=== PATIENT | female | born 1970 | race Caucasian/White ===

== ENCOUNTER 2019-09-13 21:26 | Inpatient (IN) | payer BC, SELFPAY ==
[2019-09-13 21:28] VITALS: BP 88/51; PULSE 89; RESP 12; TEMP 36.7; O2SAT 95; BMI 31.8
--- NOTE | 2019-09-13 21:49 | EKG12_ITS ---
Test Reason : SYNCOPE Blood Pressure : / mmHG Vent. Rate : 091 BPM Atrial Rate : 091 BPM P-R Int : 146 ms QRS Dur : 086 ms QT Int : 352 ms P-R-T Axes : 034 047 047 degrees QTc Int : 432 ms Normal sinus rhythm Normal ECG Confirmed by LYNN BHATT, MARVIN ([id number]), assistant film editor ASHANTI LPOEZ ([id number]) on 09/14/2019 1:41:21 PM Referred By: BB Confirmed By:MARVIN BAILEY MD
--- NOTE | 2019-09-13 21:50 | ED.VIS.GEN ---
History of Present Illness Informant: Patient Onset: Today Context: Gradual Onset - w/ prodromal lightheadedness Timing: Intermittent - x2 Quality: passed out after feeling lightheaded Current Severity: Mild Maximum Severity: Severe Worsened by: standing Associated Symptoms: black stool, black vomit Narrative: Patient was grilling food she felt lightheaded and went in to go to the bathroom and urinate, passed out while she was on the toilet falling off without apparent injury. Subsequently, she had a large amount of black stool for the first time. She also vomited black coffee-ground looking emesis at home and here. While on the way to the car to come here, she got lightheaded and passed out again, going down to her knees and scraping them but able to walk without any difficulty and no other injury. She is on omeprazole for GERD, and states that she has been taking Aleve almost daily for several years because of residual pain from her left shoulder after rotator cuff surgery. <Guilherme Navarrete - Last Filed: 09/14/19 00:32> <Adria Velasquez - Last Filed: 09/14/19 01:13> Chief Complaint: Syncope - Past Medical History (1) GERD (gastroesophageal reflux disease) Status: Chronic <Guilherme Navarrete - Last Filed: 09/14/19 00:32> Past Medical History Surgical History: cholecystectomy, rotator cuff repair - left shoulder., - - neck surgery, tubal ligation, uterine ablation, surgical preparation infected left pubic wound abscess with excision (27 cm2) on 05/11/14. Lives: Spouse/ Significant Other Smoking Status: Former smoker - Family History Paternal Family History: Reports: Cancer, Diabetes, High Cholesterol, Hypertension, - - arthritis. Maternal Family History: Reports: Diabetes, Hypertension, - - arthritis, osteoporosis. <Guilherme Navarrete - Last Filed: 09/14/19 00:32> <Adria Velasquez - Last Filed: 09/14/19 01:13> - Allergies and Home Meds Allergies/Adverse Reactions: Allergies Penicillins [PCN] Allergy (Verified 09/13/19 21:28) Hives Primary Care Physician: Chris Bhatti MD [STAFF PHYSICIAN] - Review of Systems General: Reports: Malaise. Denies: Chills, Fever, Sweats Eyes: Denies: Visual changes - bilaterally, Diplopia ENT: Denies: Bilateral ear pain, Rhinorrhea, Sore throat Cardiovascular: Denies: Chest pain, Palpitations Respiratory: Denies: Dyspnea, Cough, Dyspnea on exertion Gastrointestinal: Reports: Nausea, Vomiting, Melena. Denies: Abdominal pain, Hematochezia Genitourinary: Denies: Dysuria, Hematuria, Frequency Musculoskeletal: Reports: Extremity Pain. Denies: Neck pain, Back pain, Swelling Skin: Reports: Abrasions. Denies: Rash Neurological: Denies: Headache, Weakness, Numbness <Guilherme Navarrete - Last Filed: 09/14/19 00:32> Physical Exam Vital Signs/Narrative: Vital Signs Temp Pulse Resp BP Pulse Ox 09/13/19 21:28 98.1 F 89 12 88/51 L 95 Inital Vital Signs reviewed: Yes General: Well nourished, Well developed, No Acute Distress Head: Normocephalic, Atraumatic Eyes: Perrl, EOMI ENT: Moist mucous membranes, No rhinorrhea, - - Posterior oropharynx clear Neck: Supple, Nontender, No lymphadenopathy Cardiovascular: Regular rate, Regular rhythm, No murmurs Respiratory: No distress, CTA bilaterally, Chest nontender Abdomen: Soft, Nontender, Nondistended, Normal bowel sounds Back: Nontender, Normal Inspection Extremities: Nontender, No edema, - - All knee ligaments stable both sides. Full range of motion both knees. Skin: Normal color, No rash, Trauma - Abrasions both knees without bony tenderness Neurological: Alert, Oriented x3, Cranial nerves II-XII grossly intact, Normal Strength, Normal Sensation, Normal Gait Psychological: Normal affect, Normal Mood <Guilherme Navarrete - Last Filed: 09/14/19 00:32> Vital Signs/Narrative: Vital Signs Temp Pulse Resp BP Pulse Ox 09/14/19 01:06 79 101/69 95 09/14/19 00:18 83/51 L 09/14/19 00:00 101/62 09/13/19 22:33 85 108/84 H 98 09/13/19 22:20 86 16 75/62 L 100 09/13/19 21:28 98.1 F 89 12 88/51 L 95 <Adria Velasquez - Last Filed: 09/14/19 01:13> Diagnostic/Tx/Re-eval 09/13/19 22:22 Vomitus Gastric Occult Blood - Final Laboratory Results 09/13/19 09/13/19 09/13/19 21:45 21:45 21:45 WBC 21.4 H RBC 3.39 L Hgb 10.0 L Hct 31.3 L MCV 92.3 MCH 29.5 MCHC 31.9 L RDW Std Deviation 43.5 RDW Coeff of Dwight 13.0 Plt Count 284 MPV 11.2 Immature Gran % (Auto) 0.800 Neut % (Auto) 64.2 Lymph % (Auto) 24.3 [place] % (Auto) 6.2 Eos % (Auto) 3.8 Baso % (Auto) 0.7 Absolute Neuts (auto) 13.7 H Absolute Lymphs (auto) 5.20 H Nucleated RBC % 0 Differential Comment SCANNED Sodium 139 Potassium 3.7 Chloride 109 H Carbon Dioxide 24.0 Anion Gap 6 BUN 41 H Creatinine 0.75 Estim Creat Clear Calc 75.88 Est GFR (MDRD) Af Amer 107 Est GFR (MDRD) Non-Af 88 BUN/Creatinine Ratio 55.0 H Glucose 163 H Calcium 8.5 Troponin I 0.024 Blood Type A POSITIVE Antibody Screen NEGATIVE - Rhythm Strip Rhythm Strip: Sinus Rhythm Rate: 91 Ectopy: None - EKG Initial EKG Interpretation: Sinus Rhythm, No Acute Injury Pattern - normal EKG - Medical Decision Making Just prior to starting the IV fluids that were ordered since the patient was mildly hypotensive at 88 systolic, the patient was supine and started feeling lightheaded with nursing at the bedside, and briefly lost consciousness. Her heart rate was in the 80s at the time, and while she was very symptomatic her systolic blood pressure was 40. Nurses started fluids and before starting them, repeat pressure was in the 70s while she was waking up, and after IV fluids her pressure came up to the 100s. She felt much better. Labs as above. She clearly is having upper GI bleeding, since emesis specimen was readily available I had nursing gastric called it was positive. She had another bowel movement, it was not grossly bloody and she did not vomit gross blood. I discussed with Dr. jacques, she requested that we perform orthostatics after a liter of IV fluid was finished. Orthostatics were positive, her blood pressure went down to 83 systolic when she stood up from 108, and she was lightheaded but did not pass out. She has that we repeat the CBC which will be about 4 hours after her initial one, so that we can see the hemoglobin and the white blood count in possibly truer forearm to help assess stability. <Guilherme Navarrete - Last Filed: 09/14/19 00:32> - Medical Decision Making Patient was endorsed to me by the outgoing physician. A repeat H&H on the patient shows her to only have decreased her hemoglobin from 10.0-9.5. Blood pressures are improving in the emergency department and currently are 101/69. I discussed patient's case on the telephone with Dr. Jacques who does feel comfortable with keeping the patient at this facility. She recommended the patient be n.p.o., and receive every 6 H&H's and requested a medicine admission. I discussed this with Dr. Mancilla who agreed to accept the patient to the PCU. - Critical Care Time Critical care time (excluding procedures): 30-74 minutes <Adria Velasquez - Last Filed: 09/14/19 01:13> ED Disposition <Guilherme Navarrete - Last Filed: 09/14/19 00:32> <Adria Velasquez - Last Filed: 09/14/19 01:13> - Plan for ED Patient: Disposition: Acute Care Hospital [facility] Diagnosis: Upper GI bleeding, Syncope, Acute blood loss anemia
[2019-09-13 22:07] LABS: Absolute Neutrophil Count 13.7 X10^3/uL (2.0-7.7); Basophil# 0.15 X10^3/uL; Basophil% 0.7 % (0-1); Eosinophil# 0.82 X10^3/uL; Eosinophils% 3.8 % (0-5); Hematocrit 31.3 % (37-47); Lymphocyte % 24.3 % (19-41); Mean Corp Hgb Conc 31.9 g/dL (32-36); Mean Corpuscular Hgb 29.5 pg (27.0-32.0); Mean Corpuscular Volume 92.3 fL (81-99); Mean Platelet Vol. 11.2 fl (6.2-12.0); Monocyte# 1.33 X10^3/uL; Monocyte% 6.2 % (0-10); NRBC Flagged by Analyzer 0 % (0-5); Neutrophil % 64.2 % (47-70); POSITIVE DIFFERENTIAL YES; POSITIVE MORPHOLOGY YES; Platelet Count 284 K/mm3 (150-450); RBC Distribution Width SD 43.5 fl (35.1-43.9); Red Blood Count 3.39 M/mm3 (4.2-5.4); White Blood Count 21.4 K/mm3 (4.4-11.0)
[2019-09-13] MEDS: 0.9% Normal Saline 1,000 ML 999 ML IV (22:10)
[2019-09-13 22:11] LABS: Differential Indicated SCAN CRITERIA MET
[2019-09-13] MEDS: Ondansetron 4 MG/2 ML Vial IV (22:17)
[2019-09-13 22:20] VITALS: BP 75/62; PULSE 86; RESP 16; O2SAT 100
--- NOTE | 2019-09-13 22:20 | ED.RN ---
WHILE IN ROOM PATIENT STATED SHE FELT LIKE SHE WAS GOING TO VOMIT AGAIN. PATIENT BECAME VERY PALE AND DIAPHORETIC. PATIENT PASSED OUT WHILE LAYING BED. WAS UNCONSCIOUS FOR APPROXIMATELY 15-20 SECONDS. HEART RATE REMAINED IN THE 80'S. BP 75/62. DR. HOYT NOTIFIED.
[2019-09-13 22:30] LABS: Anion Gap 6 (5-15); BUN 41 mg/dL (7-18); Calcium,Total 8.5 mg/dL (8.5-10.1); Chloride 109 mmol/L (98-107); Creatinine, Serum 0.75 mg/dL (0.55-1.02); EST Glomerular Filtration Rate 88 mL/min (>60); Est Glom Filt Rate - Afr Amer 107 mL/min (>60); Estimated Creatinine Clearance 75.88 ml/min; Glucose 163 mg/dL (74-106); Potassium 3.7 mmol/L (3.5-5.1); Sodium Level 139 mmol/L (136-145)
[2019-09-13 22:33] VITALS: BP 108/84; PULSE 85; O2SAT 98
[2019-09-13 22:35] LABS: Differential Comment SCANNED
[2019-09-14] VITALS (22 sets, daily range): BP systolic 83–108; BP diastolic 47–69; PULSE 77–113; RESP 14–22; TEMP 36.3–37.6; O2SAT 92–100; BMI 32.5; BMI 32.6
--- NOTE | 2019-09-14 | IMM_PTH ---
PATIENT: MARCY RODRIGUEZ LOC: [facility] U#:[id number] AGE/SX: 49/F ROOM: [facility] RE09/14/[address]: Dr. Anastacio Jeter DO : 1970 BED: 1 DIS: 09/15/2019 SPEC #: [id number] RECD: 09/15/19 11:09 STATUS: MONI REJody #: [id number] JUAN: 09/14/19 00:[address]: Shanell Jacques DEPT: IMMUNOHISTOCHEMISTRY RECD BY: Lyn Pierce ENTERED: 09/15/19 11:10 SP TYPE: IMMUNO OTHR DR: DO Dr. Cristobal Keating MD No Primary Care Phys Tissues: A - Stomach, NOS Procedures: H Pylori (initial) PHYSICIAN & INSTITUTION [place] [id number] SPECIMEN INFORMATION: Tissue Source: A - Prepyloric biopsy Clinical Info: GI bleed Specimen Number: [id number] CPT code: 04889 METHODOLOGY: Deparaffinized sections of prefer/formalin-fixed tissue or PAP/DQ stained slides are incubated with monoclonal/polyclonal antibodies/oligonucleotide probes. Localization is made via biotin free immunoperoxidase method. Appropriate controls are performed and reacted as expected. Results on target cell population are indicated in the following table: RESULTS: ANTIBODY / CLONE RESULT Block A H Pylori (polyclonal) negative These tests were developed and their performance characteristics determined by [facility]. They may not have been cleared or approved by the U.S. Food and Drug Administration. The FDA has determined that such clearance or approval is not necessary. INTERPRETATION: A. Prepyloric biopsy: Negative for Helicobacter pylori organisms. SJ:ivan 09/21/19
[2019-09-14 00:45] LABS: Absolute Lymphocyte Count 2.61 X10^3/uL (0.83-4.51); Absolute Neutrophil Count 14.2 X10^3/uL (2.0-7.7); Basophil# 0.08 X10^3/uL; Basophil% 0.4 % (0-1); Eosinophil# 0.12 X10^3/uL; Eosinophils% 0.7 % (0-5); Hematocrit 29.7 % (37-47); Hemoglobin 9.5 g/dL (12.0-15.0); Lymphocyte # 2.61 X10^3/ul (4.0); Lymphocyte % 14.6 % (19-41); Mean Corpuscular Hgb 29.6 pg (27.0-32.0); Mean Corpuscular Volume 92.5 fL (81-99); Mean Platelet Vol. 10.9 fl (6.2-12.0); Monocyte# 0.76 X10^3/uL; Monocyte% 4.3 % (0-10); NRBC Flagged by Analyzer 0 % (0-5); Neutrophil # 14.15 X10^3/uL (2.7-7.7); Neutrophil % 79.2 % (47-70); Platelet Count 236 K/mm3 (150-450); Red Blood Count 3.21 M/mm3 (4.2-5.4); White Blood Count 17.9 K/mm3 (4.4-11.0)
[2019-09-14] MEDS: 0.9% Normal Saline 1,000 ML 999 ML IV (01:04)
--- NOTE | 2019-09-14 01:30 | HP.PCM_ITS ---
Problem List (1) GERD (gastroesophageal reflux disease) Status: Chronic (2) Upper GI bleeding Status: Acute (3) Syncope Status: Acute (4) Acute blood loss anemia Status: Acute History of Present Illness Date of Admission: 09/14/19 Chief Complaint: upper GIB The patient is a 49 year old female with no significant past medical history presents to the emergency room after throwing up coffee-ground emesis followed by melena stool onset of symptoms began on Friday when she was having some lightheadedness and near syncopal episode. On Friday evening prior to her arrival she was urinating in the toilet and she completely passed out leaving a margy in the wall next to her, she denies injury to her head. She was found by her daughter and try to recover at home but became lightheaded again so the daughter called the ambulance who evaluated her at the home and found her to be stable enough to walk her to her car and she was driven by personal vehicle to the emergency room. Initial hemoglobin was 10 which subsequently fell to 9.5. If she is laying flat in bed she is more comfortable and has had no more syncope as long as she is in that position. She denies chest pain shortness of breath fever chills or cough. Dr. Jacques was consulted and patient will be admitted to the progressive care unit with H&H checks every 6 hours, IV Protonix and surgical consult the morning after being n.p.o.. Past Medical History Past Medical History (Chronic Problems): Chronic Problems GERD (gastroesophageal reflux disease) (Chronic) Allergies Penicillins [PCN] Allergy (Verified 09/13/19 21:28) Hives Home Medications: Ambulatory Orders Medication Instructions Recorded Acetaminophen [Tylenol Tablet] 650 mg PO Q4H PRN PRN #30 tablet 05/12/14 Lactobacillus Acidophilus 1 tablet PO BID 10 Days tablet 05/12/14 [Acidophilus] Silver/Hydrocolloid Dressing 1 each TP DAILY #5 bandage 05/12/14 [Aquacel-Ag W-Hydrofiber Dress] Naproxen Sodium [Aleve] 220 mg PO PRN PRN 09/13/19 Omeprazole 20 mg PO DAILY 09/13/19 Surgical History: cholecystectomy, rotator cuff repair - left shoulder., - - neck surgery, tubal ligation, uterine ablation, surgical preparation infected left pubic wound abscess with excision (27 cm2) on 05/11/14. 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 had tubal ligation. Lives: Spouse/ Significant Other Smoking Status: Never smoker - *Family History Paternal History Items: Cancer, Diabetes, High Cholesterol, Hypertension, - - arthritis. Maternal History Items: Diabetes, Hypertension, - - arthritis, osteoporosis. Review of Systems Constitutional: Denies: Chills, Fever, Weight Change HEENT: Denies: Head Aches, Sinus Congestion, Sinus Drainage Cardiovascular: Denies: Chest Pain, Palpitations Respiratory: Denies: Cough, Shortness of breath at rest, Sputum production Gastrointestinal: Reports: Hematemesis, Nausea, Melena, Vomiting. Denies: Abdominal Pain Genitourinary: Denies: Dysuria Musculoskeletal: Reports: Joint Tenderness. Denies: Joint Pain Skin: Denies: Rash, Wounds Neurological: Denies: Numbness, Tingling, Focal weakness Psychiatric: Denies: Anxiety, Depression, Homicidal Ideations, Suicidal Ideations Hematologic/ Lymphatic: Denies: Easy Bruising, Easy Bleeding VTE Information - Inpt Only VTE Present on Admission: No VTE Mechan Device Prophylaxis: None VTE Pharm Prophylaxis ordered?: No Patient Problems: Active and Suspected Problems Upper GI bleeding (Acute) Syncope (Acute) Acute blood loss anemia (Acute) - Physical Exam Vitals/I&O's: Vital Signs Temp Pulse Resp BP Pulse Ox 98.7 F 91 22 H 101/69 99 09/14/19 01:16 09/14/19 01:16 09/14/19 01:16 09/14/19 01:16 09/14/19 01:16 Oxygen Delivery Method Room Air Weight: 180 lb Body Mass Index (BMI) 31.8 Intake and Output for Last 24 Hours 09/12/19 09/13/19 09/14/19 23:59 23:59 23:59 Intake Total 1035 / 1035 Balance 1035 / 1035 General: Alert, Oriented x3, Cooperative HEENT: Atraumatic, Normocephalic Neck: Supple Lungs: Clear to auscultation, Normal air movement Cardiovascular: Regular rate, Normal S1, Normal S2, No murmurs Abdomen: Bowel Sounds Present, Soft, Non Tender, Obese Extremities: No edema Skin: No rashes Musculoskeletal: No Tenderness to Palpation of Joints or Extremities Neurological: Neuro grossly intact Psych/Mental Status: Normal Affect, Appropriate Microbiology Past 72 Hours 09/13/19 22:22 Vomitus Gastric Occult Blood - Final Laboratory Results 09/13/19 21:45: WBC 21.4 H, RBC 3.39 L, Hgb 10.0 L, Hct 31.3 L, MCV 92.3, MCH 29.5, MCHC 31.9 L, RDW Std Deviation 43.5, RDW Coeff of Dwight 13.0, Plt Count 284, MPV 11.2, Immature Gran % (Auto) 0.800, Neut % (Auto) 64.2, Lymph % (Auto) 24.3, [place] % (Auto) 6.2, Eos % (Auto) 3.8, Baso % (Auto) 0.7, Absolute Neuts (auto) 13.7 H, Absolute Lymphs (auto) 5.20 H, Nucleated RBC % 0, Differential Comment SCANNED 09/13/19 21:45: Sodium 139, Potassium 3.7, Chloride 109 H, Carbon Dioxide 24.0, Anion Gap 6, BUN 41 H, Creatinine 0.75, Estim Creat Clear Calc 75.88, Est GFR (MDRD) Af Amer 107, Est GFR (MDRD) Non-Af 88, BUN/Creatinine Ratio 55.0 H, Glucose 163 H, Calcium 8.5, Troponin I 0.024 09/13/19 21:45: Blood Type A POSITIVE, Antibody Screen NEGATIVE 09/14/19 00:35: WBC 17.9 H, RBC 3.21 L, Hgb 9.5 L, Hct 29.7 L, MCV 92.5, MCH 29.6, MCHC 32.0, RDW Std Deviation 44.0 H, RDW Coeff of Dwight 13.0, Plt Count 236, MPV 10.9, Immature Gran % (Auto) 0.800, Neut % (Auto) 79.2 H, Lymph % (Auto) 14.6 L, [place] % (Auto) 4.3, Eos % (Auto) 0.7, Baso % (Auto) 0.4, Absolute Neuts (auto) 14.2 H, Absolute Lymphs (auto) 2.61, Nucleated RBC % 0 Current Medications Pantoprazole Sodium 80 mg/ (Sodium Chloride) 100 mls @ 10 mls/hr CONT INF Q10H [facility] Last Admin: 09/13/19 22:17 Dose: 10 mls/hr Documented by: Assessment/Plan All Active Problems Upper GI bleeding (Acute) Syncope (Acute) Acute blood loss anemia (Acute) Cellulitis and abscess (Acute) Chronic Problems GERD (gastroesophageal reflux disease) (Chronic) Plan 1. Acute upper GI bleed?admit to progressive care unit, consult surgery, Protonix IV every 12 hours, make patient n.p.o., H&H every 6 hours discussed discontinuation of chronic NSAIDs which are the underlying suspected cause 2. DVT prophylaxis?no Lovenox due to active GI bleed. Inpatient E&M: 62198 Init Hosp L3
--- NOTE | 2019-09-14 01:58 | NURSING ---
Pt unsure of last flu shot date. States it was 3-4 years ago.
[2019-09-14] MEDS: 0.9% Saline Lock 10 ML Syringe IV ×2 (02:30→16:55)
[2019-09-14] MEDS: 0.9% Normal Saline 1,000 ML 125 ML IV ×4 (02:33→22:16)
[2019-09-14 05:10] LABS: Absolute Neutrophil Count 9.7 X10^3/uL (2.0-7.7); Basophil# 0.07 X10^3/uL; Basophil% 0.5 % (0-1); Eosinophil# 0.07 X10^3/uL; Eosinophils% 0.5 % (0-5); Hematocrit 25.5 % (37-47); Hemoglobin 8.2 g/dL (12.0-15.0); Mean Corp Hgb Conc 32.2 g/dL (32-36); Mean Corpuscular Hgb 29.3 pg (27.0-32.0); Mean Corpuscular Volume 91.1 fL (81-99); Mean Platelet Vol. 11.2 fl (6.2-12.0); Monocyte# 0.93 X10^3/uL; Monocyte% 6.3 % (0-10); NRBC Flagged by Analyzer 0 % (0-5); Neutrophil # 9.72 X10^3/uL (2.7-7.7); Neutrophil % 65.4 % (47-70); Platelet Count 208 K/mm3 (150-450); RBC Distribution Width CV 13.2 % (11.6-14.6); RBC Distribution Width SD 43.4 fl (35.1-43.9); White Blood Count 14.8 K/mm3 (4.4-11.0)
[2019-09-14 05:15] LABS: Anion Gap 5 (5-15); BUN 25 mg/dL (7-18); BUN/Creat Ratio 49.1 RATIO (10-20); Calcium,Total 7.6 mg/dL (8.5-10.1); Chloride 113 mmol/L (98-107); Creatinine, Serum 0.51 mg/dL (0.55-1.02); EST Glomerular Filtration Rate 137 mL/min (>60); Est Glom Filt Rate - Afr Amer 166 mL/min (>60); Estimated Creatinine Clearance 111.59 ml/min; Glucose 105 mg/dL (74-106); Potassium 3.8 mmol/L (3.5-5.1); Sodium Level 141 mmol/L (136-145)
[2019-09-14 05:35] LABS: International Normalized Ratio 1.1; Prothrombin Time (Protime)PT. 14.1 SECONDS (11.7-14.9)
--- NOTE | 2019-09-14 08:59 | CON.PCM_ITS ---
Reason for Consult Date of Consultation: 09/14/19 History of Present Illness: The patient is a 49 year old F presented to the ER due to syncope, coffee-ground emesis, melena. Patient states yesterday evening started feeling lightheaded went to use the restroom and did have a syncopal event on the toilet. Afterward patient did have a vomiting which was coffee-ground as well as melanotic stool. Patient was heading to the ER and she had another syncopal event in the garage per patient. While in the ER patient did have a brink of syncopal event as well and did have some coffee-ground emesis which tested positive for occult blood and again some melanotic stool. Patient was orthostatic and initially hy potensive after fluid she did get up to the high 90s systolic/low 100s patient states she is normally about 115 systolically. Patient's hemoglobin was initially 10 went to 9.5 morning is 8.2. Patient denies feeling dizzy this morning. Patient does take Aleve 2 pills daily for years she is not always taking with food. Patient was on omeprazole for 3 months starting 5 months ago and then off but she was having daily heartburns about a week and a half ago she did start taking the omeprazole 20 mg p.o. daily. Past Medical History Past Medical History (Chronic Problems): Chronic Problems GERD (gastroesophageal reflux disease) (Chronic) Allergies Penicillins [PCN] Allergy (Verified 09/13/19 21:28) Hives Home Medications: Ambulatory Orders Medication Instructions Recorded Naproxen Sodium [Aleve] 220 mg PO PRN PRN 09/13/19 Omeprazole 20 mg PO DAILY 09/13/19 Cetirizine HCl [Zyrtec] 10 mg PO DAILY 09/14/19 Surgical History: cholecystectomy, rotator cuff repair - left shoulder., - - neck surgery, tubal ligation, uterine ablation, surgical preparation infected left pubic wound abscess with excision (27 cm2) on 05/11/14. 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 had tubal ligation. Lives: Spouse/ Significant Other Smoking Status: Never smoker - *Family History Paternal History Items: Cancer, Diabetes, High Cholesterol, Hypertension, - - arthritis. Maternal History Items: Diabetes, Hypertension, - - arthritis, osteoporosis. Review of Systems Constitutional: Denies: Fever HEENT: Denies: Difficulty Swallowing Cardiovascular: Reports: Light Headedness. Denies: Chest Pain Respiratory: Denies: Shortness of breath at rest Gastrointestinal: Reports: Hematemesis, Nausea, Melena. Denies: Abdominal Pain Genitourinary: Denies: Dysuria Musculoskeletal: Reports: Joint Pain Skin: Denies: Rash Neurological: Denies: Balance problems Hematologic/ Lymphatic: Denies: Easy Bleeding Patient Problems: Active and Suspected Problems Upper GI bleeding (Acute) Syncope (Acute) Acute blood loss anemia (Acute) - Physical Exam Vitals/I&O's: Vital Signs Temp Pulse Resp BP Pulse Ox 98.0 F 77 14 95/47 L 92 09/14/19 05:39 09/14/19 06:54 09/14/19 05:39 09/14/19 05:39 09/14/19 07:55 Oxygen Delivery Method Room Air Weight: 184 lb 1.376 oz Body Mass Index (BMI) 32.5 Intake and Output for Last 24 Hours 09/12/19 09/13/19 09/14/19 23:59 23:59 23:59 Intake Total 1035 / 1035 1101.17 / 1101.17 Balance 1035 / 1035 1101.17 / 1101.17 General: Alert, Oriented x3, Cooperative, No apparent distress HEENT: Atraumatic Lungs: Normal air movement Cardiovascular: Regular rate Abdomen: Soft, Non Tender, Non-Distended Extremities: No clubbing, No cyanosis, No edema Neurological: Cranial nerves II-XII grossly intact Psych/Mental Status: Normal Affect Microbiology Past 72 Hours 09/13/19 22:22 Vomitus Gastric Occult Blood - Final Laboratory Results 09/13/19 21:45: WBC 21.4 H, RBC 3.39 L, Hgb 10.0 L, Hct 31.3 L, MCV 92.3, MCH 29.5, MCHC 31.9 L, RDW Std Deviation 43.5, RDW Coeff of Dwight 13.0, Plt Count 284, MPV 11.2, Immature Gran % (Auto) 0.800, Neut % (Auto) 64.2, Lymph % (Auto) 24.3, [place] % (Auto) 6.2, Eos % (Auto) 3.8, Baso % (Auto) 0.7, Absolute Neuts (auto) 13.7 H, Absolute Lymphs (auto) 5.20 H, Nucleated RBC % 0, Differential Comment SCANNED 09/13/19 21:45: Sodium 139, Potassium 3.7, Chloride 109 H, Carbon Dioxide 24.0, Anion Gap 6, BUN 41 H, Creatinine 0.75, Estim Creat Clear Calc 75.88, Est GFR (MDRD) Af Amer 107, Est GFR (MDRD) Non-Af 88, BUN/Creatinine Ratio 55.0 H, Glucose 163 H, Calcium 8.5, Troponin I 0.024 09/13/19 21:45: Blood Type A POSITIVE, Antibody Screen NEGATIVE 09/14/19 00:35: WBC 17.9 H, RBC 3.21 L, Hgb 9.5 L, Hct 29.7 L, MCV 92.5, MCH 29.6, MCHC 32.0, RDW Std Deviation 44.0 H, RDW Coeff of Dwight 13.0, Plt Count 236, MPV 10.9, Immature Gran % (Auto) 0.800, Neut % (Auto) 79.2 H, Lymph % (Auto) 14.6 L, [place] % (Auto) 4.3, Eos % (Auto) 0.7, Baso % (Auto) 0.4, Absolute Neuts (auto) 14.2 H, Absolute Lymphs (auto) 2.61, Nucleated RBC % 0 09/14/19 04:48: WBC 14.8 H, RBC 2.80 L, Hgb 8.2 L, Hct 25.5 L, MCV 91.1, MCH 29.3, MCHC 32.2, RDW Std Deviation 43.4, RDW Coeff of Dwight 13.2, Plt Count 208, MPV 11.2, Immature Gran % (Auto) 0.300, Neut % (Auto) 65.4, Lymph % (Auto) 27.0, [place] % (Auto) 6.3, Eos % (Auto) 0.5, Baso % (Auto) 0.5, Absolute Neuts (auto) 9.7 H, Absolute Lymphs (auto) 4.00, Nucleated RBC % 0 09/14/19 04:48: PT 14.1, INR 1.1 09/14/19 04:48: Sodium 141, Potassium 3.8, Chloride 113 H, Carbon Dioxide 23.0, Anion Gap 5, BUN 25 H, Creatinine 0.51 L, Estim Creat Clear Calc 111.59, Est GFR (MDRD) Af Amer 166, Est GFR (MDRD) Non-Af 137, BUN/Creatinine Ratio 49.1 H, Glucose 105, Calcium 7.6 L Current Medications Pantoprazole Sodium 80 mg/ (Sodium Chloride) 100 mls @ 10 mls/hr CONT INF Q10H [facility] Last Admin: 09/14/19 07:24 Dose: 10 mls/hr Documented by: Sodium Chloride () 1,000 mls @ 125 mls/hr IV .Q8H [facility] Last Admin: 09/14/19 02:33 Dose: 125 mls/hr Documented by: Sodium Chloride () 250 mls @ 15 mls/hr IV .[id number] PRN PRN Reason: Saline Flush Sodium Chloride () 250 mls @ 15 mls/hr IV .[id number] PRN PRN Reason: Additional IVPB Infusion Ondansetron HCl (Zofran) 4 mg IV Q8H PRN PRN PRN Reason: NAUSEA/VOMITING Sodium Chloride () 10 - 40 ml IV UD PRN PRN Reason: SALINE FLUSH Last Admin: 09/14/19 02:30 Dose: 10 ml Documented by: Assessment/Plan All Active Problems Upper GI bleeding (Acute) Syncope (Acute) Acute blood loss anemia (Acute) Cellulitis and abscess (Acute) 49-year-old female with coffee-ground emesis, melena, anemia, syncope x3 1. I have discussed the above with the patient. I have offered the patient EGD for evaluation. scheduled for 10:30 today I have explained the risks/benefits of the procedure and described the procedure. I have discussed the risks with the patient, including but not limited to: infection, bleeding, perforation of the GI tract requiring emergency surgery, inability to complete the procedure, injury to any internal organs, complications of anesthesia, etc. - the patient understands and agrees to proceed. I have answered all the patient's questions to the patient's satisfaction and the patient has no further questions. Shanell Jacques M.D. Pager: [phone] [facility] [address] [place] [address], [address] [place] [address] Office: [phone] Inpatient E&M: 44108 Init Hosp L2
--- NOTE | 2019-09-14 10:30 | GASB_PTH ---
PATIENT: MARCY RODRIGUEZ LOC: [facility] U#:[id number] AGE/SX: 49/F ROOM: [facility] RE09/14/[address]: Dr. Anastacio Jeter DO : 1970 BED: 1 DIS: 09/15/2019 SPEC #: [id number] RECD: 09/14/19 12:06 STATUS: MONI REQ #: [id number] JUAN: 09/14/19 10:[address]: Shanell Jacques DEPT: SURGICAL PATHOLOGY RECD BY: Sriram Cardenas ENTERED: 09/15/19 09:34 SP TYPE: Gastric Bx OTHR DR: DO Dr. Cristobal Keating MD Dr. Tamera Robotham, MD No Primary Care Phys Tissues: A - Gastric mucous membrane B - Gastric mucous membrane Procedures: Special Stain Group II Surgery Specimen Level IV Alcian Blue/PAS (control) Comments: @ Ordering doctor for SUIV edited from to @ by RAMESH at 09/15/19 1119 @ Submitting doctor edited from to @ by RGOOD at 09/15/19 1119 HEADER OPERATION: EGD ([facility] [place]) PRE-OP DIAGNOSIS: GI bleed TISSUE SUBMITTED: A - Prepyloric biopsy for histo and H. pylori, B - GE junction biopsy MICROSCOPIC DIAGNOSIS A. Prepyloric biopsy: Moderate gastritis. Focal intestinal metaplasia. See microscopic description and comment. B. GE junction, biopsy: Fragments of gastroesophageal mucosa with mild chronic inflammation. A few minute lymphoid aggregate formation, favor benign. Intestinal metaplasia (goblet cell metaplasia) is not identified. See comment. SJ:rg 09/16/19 COMMENT A. The results of immunohistochemistry for Helicobacter pylori will be reported separately ([id number]). Alcian blue/PAS stain with matched control is used in the evaluation of the specimen. B. Alcian blue/PAS stain with matched control is used in the evaluation of the specimen. MICROSCOPIC DESCRIPTION Slides are reviewed. A. The specimen shows fragments of gastric mucosa with chronic inflammatory cell infiltrates in the lamina propria consisting of lymphocytes and plasma cells, consistent with moderate chronic gastritis. Focal intestinal metaplasia is also noted. GROSS DESCRIPTION A - Received in fixative is one container labeled with the patient's name and designated prepyloric biopsy. The specimen consists of multiple irregular fragments of light estevez soft tissue that in aggregate measure 0.7 x 0.2 x 0.1 cm. The specimen is totally submitted in one cassette. B - Received in fixative is one container labeled with the patient's name and designated GE junction biopsy. The specimen consists of two irregular fragments of light estevez soft tissue that in aggregate measure 0.8 x 0.3 x 0.1 cm. The specimen is totally submitted in one cassette. / SJ:rg 09/15/19 TC:3 CPT: 46372 x2, 50151 x2
--- NOTE | 2019-09-14 11:10 | PN_ITS ---
Patient Problems: Active and Suspected Problems Upper GI bleeding (Acute) Syncope (Acute) Acute blood loss anemia (Acute) Reason for Visit: anemia, gi bleed Subjective: no red blood in stools, stools have been black. pt has been using nsaids. No fever/chills. Pt has had heartburn, midepigastric pain, worse with eating spicy foods. No prior hx GI bleed. No fever/chills. Vitals/I&O's: Vital Signs Temp Pulse Resp BP Pulse Ox 98.2 F 84 16 95/50 L 96 09/14/19 09:29 09/14/19 09:29 09/14/19 09:29 09/14/19 09:29 09/14/19 09:29 Oxygen Delivery Method Room Air Weight: 184 lb 1.376 oz Body Mass Index (BMI) 32.5 Intake and Output for Last 24 Hours 09/12/19 09/13/19 09/14/19 23:59 23:59 23:59 Intake Total 1035 / 1035 2081.42 / 2081.42 Balance 1035 / 1035 2081.42 / 2081. General: Alert, Oriented x3, Cooperative HEENT: Atraumatic, PERRLA, EOMI, Normocephalic Neck: Supple, No JVD, Negative Carotid Bruits Lungs: Clear to auscultation, Normal air movement Cardiovascular: Regular rate, No murmurs Abdomen: Bowel Sounds Present, Soft, Tender - tender midepigrastic region to moderate palp. Extremities: No edema, Capillary Refill Less than 3 Seconds Skin: No rashes, No breakdown Musculoskeletal: No Tenderness to Palpation of Joints or Extremities Neurological: Cranial nerves II-XII grossly intact Psych/Mental Status: Normal Affect, Appropriate, Alert and oriented to time, place, person, mood and affect Microbiology Past 72 Hours 09/13/19 22:22 Vomitus Gastric Occult Blood - Final Laboratory Results 09/13/19 21:45: WBC 21.4 H, RBC 3.39 L, Hgb 10.0 L, Hct 31.3 L, MCV 92.3, MCH 29.5, MCHC 31.9 L, RDW Std Deviation 43.5, RDW Coeff of Dwight 13.0, Plt Count 284, MPV 11.2, Immature Gran % (Auto) 0.800, Neut % (Auto) 64.2, Lymph % (Auto) 24.3, Stephenson % (Auto) 6.2, Eos % (Auto) 3.8, Baso % (Auto) 0.7, Absolute Neuts (auto) 13.7 H, Absolute Lymphs (auto) 5.20 H, Nucleated RBC % 0, Differential Comment SCANNED 09/13/19 21:45: Sodium 139, Potassium 3.7, Chloride 109 H, Carbon Dioxide 24.0, Anion Gap 6, BUN 41 H, Creatinine 0.75, Estim Creat Clear Calc 75.88, Est GFR (MDRD) Af Amer 107, Est GFR (MDRD) Non-Af 88, BUN/Creatinine Ratio 55.0 H, Glucose 163 H, Calcium 8.5, Troponin I 0.024 09/13/19 21:45: Blood Type A POSITIVE, Antibody Screen NEGATIVE 09/14/19 00:35: WBC 17.9 H, RBC 3.21 L, Hgb 9.5 L, Hct 29.7 L, MCV 92.5, MCH 29.6, MCHC 32.0, RDW Std Deviation 44.0 H, RDW Coeff of Dwight 13.0, Plt Count 236, MPV 10.9, Immature Gran % (Auto) 0.800, Neut % (Auto) 79.2 H, Lymph % (Auto) 14.6 L, Stephenson % (Auto) 4.3, Eos % (Auto) 0.7, Baso % (Auto) 0.4, Absolute Neuts (auto) 14.2 H, Absolute Lymphs (auto) 2.61, Nucleated RBC % 0 09/14/19 04:48: WBC 14.8 H, RBC 2.80 L, Hgb 8.2 L, Hct 25.5 L, MCV 91.1, MCH 29.3, MCHC 32.2, RDW Std Deviation 43.4, RDW Coeff of Dwight 13.2, Plt Count 208, MPV 11.2, Immature Gran % (Auto) 0.300, Neut % (Auto) 65.4, Lymph % (Auto) 27.0, Stephenson % (Auto) 6.3, Eos % (Auto) 0.5, Baso % (Auto) 0.5, Absolute Neuts (auto) 9.7 H, Absolute Lymphs (auto) 4.00, Nucleated RBC % 0 04/07/20 04:48: PT 14.1, INR 1.1 09/14/19 04:48: Sodium 141, Potassium 3.8, Chloride 113 H, Carbon Dioxide 23.0, Anion Gap 5, BUN 25 H, Creatinine 0.51 L, Estim Creat Clear Calc 111.59, Est GFR (MDRD) Af Amer 166, Est GFR (MDRD) Non-Af 137, BUN/Creatinine Ratio 49.1 H, Glucose 105, Calcium 7.6 L Current Medications Pantoprazole Sodium 80 mg/ (Sodium Chloride) 100 mls @ 10 mls/hr CONT INF Q10H [facility] Last Admin: 09/14/19 07:24 Dose: 10 mls/hr Documented by: Sodium Chloride () 1,000 mls @ 125 mls/hr IV .Q8H [facility] Last Admin: 09/14/19 10:24 Dose: 125 mls/hr Documented by: Sodium Chloride () 250 mls @ 15 mls/hr IV .[id number] PRN PRN Reason: Saline Flush Sodium Chloride () 250 mls @ 15 mls/hr IV .[id number] PRN PRN Reason: Additional IVPB Infusion Ondansetron HCl (Zofran) 4 mg IV Q8H PRN PRN PRN Reason: NAUSEA/VOMITING Sodium Chloride () 10 - 40 ml IV UD PRN PRN Reason: SALINE FLUSH Last Admin: 09/14/19 02:30 Dose: 10 ml Documented by: STROKE Vital Signs/Narrative: Vital Signs Temp Pulse Resp BP Pulse Ox 09/14/19 09:29 98.2 F 84 16 95/50 L 96 09/14/19 07:55 92 Medical Necessity - Tobacco Use Smoking Status: Never smoker Assessment/Plan All Active Problems Upper GI bleeding (Acute) Syncope (Acute) Acute blood loss anemia (Acute) Cellulitis and abscess (Acute) 1. Acute blood loss anemia 2/2 GI bleed presumed upper - black stools. Hgb 10.0 --> 8.2 overnight. EGD today. Recheck Hgb and orthostatic vitals post EGD. Continue PPI, carafate. Advised no further NSAID use at all. Plt and inr normal. 2. Hypotensive overnight - 2/2 #1 continue fluids DVT ppx: SCDs This patient was seen by Reji Rivera PA-C under the supervision of Dr. Jeter
[2019-09-14 11:25] LABS: Bedside Glucose 98 mg/dL (70-110)
[2019-09-14] MEDS: Acetaminophen 325 MG Tablet 650 MG PO (12:34)
--- NOTE | 2019-09-14 13:14 | CASEMGMT ---
LUKAS DEVINE assessment: Face to Face with patient for initial transition planning/care coordination assessment. LUKAS DEVINE introduced self and role at [facility], pt voices understanding and consents to assessment at this time. Pt is sitting up in bed in no distress at this time. Pt is A/Ox4 at this time and answers all questions appropriately at this time. Care providers, pharmacy, and demographics verified at this time. Presentation: 2 syncopal episodes this evening-pt also c/o black vomit/stool Admitting dx: Upper GI bleed PCP: Myles Specialists: Pt states no current specialists. [facility]erred [facility]acy: [facility] Insurance: Keys Prescription Benefit: Keys Living Will/HPOA: Pt states does not have LW/HPOA but is interested in info and possibly completing AD's at this time. Nghia SW aware, voices understanding. LNOK: Jessica Schmidt, daughter Living Arrangements: Pt states lives with 16yo daughter in 1 story home and states no concerns at home at this time. Pt states is independent with ADL's. Transportation: Pt states drives self and states no transportation concerns at this time. DME/HHC: Pt states no current DME or need for any at this time. Pt states no hx of HHC or SNF in the past. Pt states no concerns with going home at time of discharge. 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 Pt states does not smoke cigarettes and occasionally drinks ETOH. Pt states no further concerns/needs at this time. CM to follow for any further discharge planning/needs. Advised pt to ask for CM if any further questions/concerns/needs arise, voices understanding. Pt Goal: Home Plan: [place] LUKAS DEVINE
--- NOTE | 2019-09-14 13:40 | DCINST_ITS ---
- Discharge Diagnoses Current Active Problems: Current Active and Chronic Problems Upper GI bleeding (Acute) Syncope (Acute) Acute blood loss anemia (Acute) You will use the following diet at home:: No restrictions Your food should be the consistency of: Regular Your liquids should be the consistency of: Regular/Thin Discharge Activity: Return to Normal Activity Additional Instructions: Do not use NSAIDs Allergies/Adverse Reactions: Allergies Penicillins [PCN] Allergy (Verified 09/13/19 21:28) Hives Medications to take at Discharge Cetirizine HCl [Zyrtec] 10 mg PO DAILY 09/14/19 Pantoprazole Sodium [Protonix] 40 mg PO BID #60 tab 09/14/19 Sucralfate [Carafate] 1 gm PO 4X/DAY #120 tab 09/14/19 The following prescriptions were given: Sucralfate [Carafate] 1 gm PO 4X/DAY #120 tab Transmission Status: Received by [facility] Pantoprazole Sodium [Protonix] 40 mg PO BID #60 tab Transmission Status: Received by [facility] Primary Care Physician: Care Physician,No Primary [Primary Care Provider] - Please follow up with your Primary Care Physician in: 1-2 weeks Test Results: Test results from this visit will be discussed in further detail at your follow- up appointment, if applicable. Please Follow Up With: Shanell Jacques MD When: 2-3 weeks Proposed Discharge Date: 09/14/19
--- NOTE | 2019-09-14 13:42 | DS.PCM_ITS ---
Discharge Date and Diagnosis - Problem List Patient Problems: Active and Suspected Problems Upper GI bleeding (Acute) Syncope (Acute) Acute blood loss anemia (Acute) Date of Admission: 09/14/19 Date of Discharge: 09/14/19 - Primary Discharge Diagnosis Active and Suspected Problems Acute blood loss anemia 2/2 upper GI bleed, likely 2/2 duodenal ulcer GERD - Secondary Discharge Diagnosis Chronic Problems GERD (gastroesophageal reflux disease) (Chronic) Hospital Course and Treatment Consults: Georgie - Gen surgery Operations: None Procedures: EGD Summary of Care Provided: Hospital Course: The patient is a 49 year old F who presented to the ER with c/o vomiting coffee ground emesis and black stools, lightheadedness and near syncope. She was found to have Hgb of 10.0, vomitus was + for blood. She was using naproxen over the counter. She was admitted to the PCU. Gen surgery, Dr. Jacques, evaluated the patient and decided to take her for an EGD. She was found to have a gastric ulcer, nonbleeding. There was also a small haital hernia. Bx for H pylori was taken. She was placed on BID protonix and carafate to be used 1 hour prior to meals. She was advised to monitor for foods that exacerbated her reflux and to avoid these. She uses minimal alcohol and does not smoke. She was discharged home in stable condition. She will need to follow up with Dr. Jacques in 2-3 weeks, and with her PCP in 1-2 weeks. This patient was seen by Reji Rivera PA-C under the supervision of Dr. Jeter. [] Patient Problems: Active and Suspected Problems Upper GI bleeding (Acute) Syncope (Acute) Acute blood loss anemia (Acute) - Physical Exam Vitals/I&O's: Vital Signs Temp Pulse Resp BP Pulse Ox 98.1 F 83 16 101/50 L 98 09/14/19 11:58 09/14/19 11:58 09/14/19 11:58 09/14/19 11:58 09/14/19 11:58 Oxygen Delivery Method Room Air Weight: 184 lb 1.376 oz Body Mass Index (BMI) 32.5 Intake and Output for Last 24 Hours 09/12/19 09/13/19 09/14/19 23:59 23:59 23:59 Intake Total 1035 / 1035 2082.42 / 2082.42 Balance 5 / 103 General: Alert, Oriented x3, Cooperative HEENT: Atraumatic, PERRLA, EOMI, Normocephalic Neck: Supple, No JVD, Negative Carotid Bruits Lungs: Clear to auscultation, Normal air movement Cardiovascular: Regular rate, No murmurs Abdomen: Bowel Sounds Present, Soft, Tender - midepigastric Extremities: No edema, Capillary Refill Less than 3 Seconds Skin: No rashes, No breakdown Musculoskeletal: No Tenderness to Palpation of Joints or Extremities Neurological: Cranial nerves II-XII grossly intact Psych/Mental Status: Normal Affect, Appropriate, Alert and oriented to time, place, person, mood and affect Microbiology Past 72 Hours 09/13/19 22:22 Vomitus Gastric Occult Blood - Final Laboratory Results 09/13/19 21:45: WBC 21.4 H, RBC 3.39 L, Hgb 10.0 L, Hct 31.3 L, MCV 92.3, MCH 29.5, MCHC 31.9 L, RDW Std Deviation 43.5, RDW Coeff of Dwight 13.0, Plt Count 284, MPV 11.2, Immature Gran % (Auto) 0.800, Neut % (Auto) 64.2, Lymph % (Auto) 24.3, Rich % (Auto) 6.2, Eos % (Auto) 3.8, Baso % (Auto) 0.7, Absolute Neuts (auto) 13.7 H, Absolute Lymphs (auto) 5.20 H, Nucleated RBC % 0, Differential Comment SCANNED 09/13/19 21:45: Sodium 139, Potassium 3.7, Chloride 109 H, Carbon Dioxide 24.0, Anion Gap 6, BUN 41 H, Creatinine 0.75, Estim Creat Clear Calc 75.88, Est GFR (MDRD) Af Amer 107, Est GFR (MDRD) Non-Af 88, BUN/Creatinine Ratio 55.0 H, Gluco se 163 H, Calcium 8.5, Troponin I 0.024 09/13/19 21:45: Blood Type A POSITIVE, Antibody Screen NEGATIVE 09/14/19 00:35: WBC 17.9 H, RBC 3.21 L, Hgb 9.5 L, Hct 29.7 L, MCV 92.5, MCH 29.6, MCHC 32.0, RDW Std Deviation 44.0 H, RDW Coeff of Dwight 13.0, Plt Count 236, MPV 10.9, Immature Gran % (Auto) 0.800, Neut % (Auto) 79.2 H, Lymph % (Auto) 14.6 L, Rich % (Auto) 4.3, Eos % (Auto) 0.7, Baso % (Auto) 0.4, Absolute Neuts (auto) 14.2 H, Absolute Lymphs (auto) 2.61, Nucleated RBC % 0 09/14/19 04:48: WBC 14.8 H, RBC 2.80 L, Hgb 8.2 L, Hct 25.5 L, MCV 91.1, MCH 29.3, MCHC 32.2, RDW Std Deviation 43.4, RDW Coeff of Dwight 13.2, Plt Count 208, MPV 11.2, Immature Gran % (Auto) 0.300, Neut % (Auto) 65.4, Lymph % (Auto) 27.0, Rich % (Auto) 6.3, Eos % (Auto) 0.5, Baso % (Auto) 0.5, Absolute Neuts (auto) 9.7 H, Absolute Lymphs (auto) 4.00, Nucleated RBC % 0 09/14/19 04:48: PT 14.1, INR 1.1 09/14/19 04:48: Sodium 141, Potassium 3.8, Chloride 113 H, Carbon Dioxide 23.0, Anion Gap 5, BUN 25 H, Creatinine 0.51 L, Estim Creat Clear Calc 111.59, Est GFR (MDRD) Af Amer 166, Est GFR (MDRD) Non-Af 137, BUN/Creatinine Ratio 49.1 H, Glucose 105, Calcium 7.6 L 09/14/19 06:59: POC Glucose 98 Current Medications Acetaminophen (Tylenol) 650 mg PO Q6H PRN PRN PRN Reason: HEADACHE Last Admin: 09/14/19 12:34 Dose: 650 mg Documented by: Pantoprazole Sodium 80 mg/ (Sodium Chloride) 100 mls @ 10 mls/hr CONT INF Q10H [facility] Last Admin: 09/14/19 07:24 Dose: 10 mls/hr Documented by: Sodium Chloride () 1,000 mls @ 125 mls/hr IV .Q8H [facility] Last Admin: 09/14/19 10:24 Dose: 125 mls/hr Documented by: Sodium Chloride () 250 mls @ 15 mls/hr IV .[id number] PRN PRN Reason: Saline Flush Sodium Chloride () 250 mls @ 15 mls/hr IV .[id number] PRN PRN Reason: Additional IVPB Infusion Nutritional Formula (Lactose Free) (Ensure Clear) 120 ml PO 4X/DAY [facility] Ondansetron HCl (Zofran) 4 mg IV Q8H PRN PRN PRN Reason: NAUSEA/VOMITING Sodium Chloride () 10 - 40 ml IV UD PRN PRN Reason: SALINE FLUSH Last Admin: 09/14/19 02:30 Dose: 10 ml Documented by: Sucralfate (Carafate) 1 gm PO 1HR_ACHS [facility] Discharge Diet: No Restrictions Discharge Activity: Return to Normal Activity Home Medications: Medications to take at Discharge Cetirizine HCl [Zyrtec] 10 mg PO DAILY 09/14/19 Pantoprazole Sodium [Protonix] 40 mg PO BID #60 tab 09/14/19 Sucralfate [Carafate] 1 gm PO 4X/DAY #120 tab 09/14/19 Following Prescrptions Were Given to Patient: Sucralfate [Carafate] 1 gm PO 4X/DAY #120 tab Transmission Status: Received by [facility] Pantoprazole Sodium [Protonix] 40 mg PO BID #60 tab Transmission Status: Received by [facility] Primary Care Physician: Care Physician,No Primary [Primary Care Provider] - Please follow up with your Primary Care Physician in: 1-2 weeks Please Follow Up With: Shanell Jacques MD When: 2-3 weeks Disposition: Home Minutes spent on discharge:: 35 Patient Condition:: Stable Medical Necessity - Tobacco Use Smoking Status: Never smoker Meaningful Use Info Meaningful Use Diagnoses (Choose all that apply): None applicable
[2019-09-14 14:06] LABS: Hematocrit 23.1 % (37-47); Hemoglobin 7.6 g/dL (12.0-15.0)
--- NOTE | 2019-09-14 14:58 | CASEMGMT ---
SW completed a Healthcare Power of Wire Stockkeeper and a Healthcare Living Will with patient. Copies were made and given to patient along with originals. A copy of each was also placed in patient's chart. Yaa NERI
[2019-09-14] MEDS: Sucralfate 1 GM Tablet PO ×2 (16:53→22:10)
[2019-09-14] MEDS: Acetaminophen/Butalbital/Caffe 1 Tablet 2 TABLET PO (17:31)
[2019-09-14] MEDS: Pantoprazole Sodium 40 MG Tablet PO (22:10)
[2019-09-15 02:49] VITALS: PULSE 78
[2019-09-15 03:27] VITALS: BP 107/61; PULSE 78; RESP 16; TEMP 36.8; O2SAT 94
[2019-09-15] MEDS: 0.9% Normal Saline 1,000 ML 125 ML IV (05:38)
[2019-09-15] MEDS: Acetaminophen 325 MG Tablet 650 MG PO (05:45)
[2019-09-15 06:14] LABS: Absolute Lymphocyte Count 4.26 X10^3/uL (0.83-4.51); Absolute Neutrophil Count 4.2 X10^3/uL (2.0-7.7); Basophil# 0.09 X10^3/uL; Basophil% 0.9 % (0-1); Eosinophil# 1.06 X10^3/uL; Eosinophils% 10.3 % (0-5); Hematocrit 22.6 % (37-47); Hemoglobin 7.3 g/dL (12.0-15.0); Lymphocyte # 4.26 X10^3/ul (4.0); Lymphocyte % 41.4 % (19-41); Mean Corp Hgb Conc 32.3 g/dL (32-36); Mean Corpuscular Hgb 30.2 pg (27.0-32.0); Mean Corpuscular Volume 93.4 fL (81-99); Mean Platelet Vol. 10.7 fl (6.2-12.0); Monocyte# 0.62 X10^3/uL; NRBC Flagged by Analyzer 0 % (0-5); Neutrophil # 4.22 X10^3/uL (2.7-7.7); Platelet Count 180 K/mm3 (150-450); RBC Distribution Width CV 13.4 % (11.6-14.6); RBC Distribution Width SD 45.7 fl (35.1-43.9); Red Blood Count 2.42 M/mm3 (4.2-5.4); White Blood Count 10.3 K/mm3 (4.4-11.0)
[2019-09-15 06:45] VITALS: PULSE 81
[2019-09-15] MEDS: Sucralfate 1 GM Tablet PO (07:17)
[2019-09-15 07:55] VITALS: O2SAT 91
[2019-09-15 09:06] VITALS: BP 98/59; PULSE 79; RESP 16; TEMP 37; O2SAT 93
[2019-09-15] MEDS: Pantoprazole Sodium 40 MG Tablet PO (09:09)
[2019-09-15] MEDS: Acetaminophen/Butalbital/Caffe 1 Tablet 2 TABLET PO (11:03)
--- NOTE | 2019-10-06 12:24 | OP.EGD_ITS ---
Patient Name: Erendira Schmidt Procedure Date: 09/14/2019 10:07 AM Date of : 1970 Age: 49 Procedure: Upper GI endoscopy Indications: Coffee-ground emesis, Melena Providers: Shanell Jacques MD Medicines: Monitored Anesthesia Care Patient Profile: This is a 49 year old female. Complications: No immediate complications. Procedure: Pre-Anesthesia Assessment: - Prior to the procedure, a History and Physical was performed, and patient medications and allergies were reviewed. The patient's tolerance of previous anesthesia was also reviewed. The risks and benefits of the procedure and the sedation options and risks were discussed with the patient. All questions were answered, and informed consent was obtained. Prior Anticoagulants: The patient has taken naproxen, last dose was 1 day prior to procedure. ASA Grade Assessment: Per anesthesia. After reviewing the risks and benefits, the patient was deemed in satisfactory condition to undergo the procedure. After obtaining informed consent, the endoscope was passed under direct vision. Throughout the procedure, the patient's blood pressure, pulse, and oxygen saturations were monitored continuously. The gastroscope was introduced through the mouth, and advanced to the second part of duodenum. The upper GI endoscopy was accomplished without difficulty. The patient tolerated the procedure well. Scope In: 10:52:27 AM Scope Out: 11:01:23 AM Total Procedure Duration Time 0 hours 8 minutes 56 seconds Findings: A small hiatal hernia was present. The Z-line was variable and was found 35 cm from the incisors. Biopsies were taken with a cold forceps for histology. The stomach was normal. Mildly erythematous mucosa without bleeding was found in the gastric antrum. Biopsies were taken with a cold forceps for histology. Biopsies were taken with a cold forceps for Helicobacter pylori cultures. One non-bleeding duodenal ulcer with a clean ulcer base (Hakan Class III) was found in the duodenal bulb. The lesion was 7 mm in largest dimension. Impression: - Small hiatal hernia. - Z-line variable, 35 cm from the incisors. Biopsied. - Normal stomach. - Erythematous mucosa in the antrum. Biopsied. - One non-bleeding duodenal ulcer with a clean ulcer base (Hakan Class III). Recommendation: - Use Protonix (pantoprazole) 40 mg PO BID [duration]. - Use sucralfate tablets 1 gram PO QID for 1 month. - No aspirin, ibuprofen, naproxen, or other non-steroidal anti-inflammatory drugs. - Await pathology results. - Return patient to [facility] for ongoing care. - Clear liquid diet. - Continue present medications. Procedure Code(s): --- Professional --- 45839, Esophagogastroduodenoscopy, flexible, transoral; with biopsy, single or multiple Diagnosis Code(s): --- Professional --- K44.9, Diaphragmatic hernia without obstruction or gangrene K22.8, Other specified diseases of esophagus K31.89, Other diseases of stomach and duodenum K26.9, Duodenal ulcer, unspecified as acute or chronic, without hemorrhage or perforation K92.0, Hematemesis K92.1, Melena (includes Hematochezia) CPT copyright 2017 [employer]. All rights reserved. The codes documented in this report are preliminary and upon remote inpatient coder review may be revised to meet current compliance requirements. MD Shanell Teran MD 09/14/2019 11:09:49 AM This report has been signed electronically. Number of Addenda: 0 Note Initiated On: 09/14/2019 10:07 AM
--- NOTE | 2019-10-06 12:25 | OP.CCLET_ITS ---
10/06/2019 No Primary Care Physician Re : Upper GI endoscopy procedure for Erendira Schmidt Dear Care Physician This procedure was performed on Saturday, September 14, 2019. My impressions and recommendations are as follows: Impressions : - Small hiatal hernia. - Z-line variable, 35 cm from the incisors. Biopsied. - Normal stomach. - Erythematous mucosa in the antrum. Biopsied. - One non-bleeding duodenal ulcer with a clean ulcer base (Hakan Class III). Recommendations : - Use Protonix (pantoprazole) 40 mg PO BID [duration]. - Use sucralfate tablets 1 gram PO QID for 1 month. - No aspirin, ibuprofen, naproxen, or other non-steroidal anti-inflammatory drugs. - Await pathology results. - Return patient to hospital [facility] for ongoing care. - Clear liquid diet. - Continue present medications. My findings are described in the full procedure note, which is enclosed. If I can be of further assistance, please feel free to contact me at Doctor phone number(s): , Work: . Sincerely, MD Shanell Teran MD 09/14/2019 11:09:49 AM This report has been signed electronically.
== END 2019-09-15 11:49 | disposition home or self-care (01) | DRG 378 ==
LOC: ED 09-14 01:13 → PCU 09-14 01:44
PROVIDERS: Emergency Medicine; Physician Assistant; Surgery; Admitting Provider Family Medicine; Emergency Provider Emergency Medicine; Visit Provider Internal Medicine
PROC: 0DJ08ZZ Inspection of Upper Intestinal Tract, Via Natural or Artificial Opening Endoscopic (ICD-10-PCS; CPT 43235; principal; 2019-09-14 10:25)
DX: K92.1 Melena (principal); D62 Acute posthemorrhagic anemia; K92.0 Hematemesis; K26.9 Duodenal ulcer, unspecified as acute or chronic, without hemorrhage or perforation; K44.9 Diaphragmatic hernia without obstruction or gangrene; K22.8 Other specified diseases of esophagus; K21.9 Gastro-esophageal reflux disease without esophagitis; K31.89 Other diseases of stomach and duodenum; I95.1 Orthostatic hypotension; Z79.1 Long term (current) use of non-steroidal anti-inflammatories (NSAID)
CPT/HCPCS: 36415; 80048; 82271; 82962; 84484; 85014; 85018; 85025; 85610; 86850; 86900; 86901; 88305; 88313; 88342; 93005; 99283; J7030; A4216; J2405; J3490

== ENCOUNTER → 2019-10-08 11:10 | Outpatient (CLI) | payer BC, SELFPAY ==
[2019-09-30 13:04] VITALS: BMI 32.5
[2019-10-08 11:24] LABS: Hemoglobin 8.8 g/dL (12.0-15.0); Mean Corp Hgb Conc 30.3 g/dL (32-36); Mean Corpuscular Hgb 25.9 pg (27.0-32.0); Mean Corpuscular Volume 85.3 fL (81-99); Mean Platelet Vol. 10.9 fl (6.2-12.0); Platelet Count 257 K/mm3 (150-450); RBC Distribution Width CV 14.2 % (11.6-14.6); RBC Distribution Width SD 44.3 fl (35.1-43.9); White Blood Count 9.4 K/mm3 (4.4-11.0)
== END ==
PROVIDERS: PCP Family Medicine; Referring Provider Surgery; Visit Provider Surgery
DX: K26.9 Duodenal ulcer, unspecified as acute or chronic, without hemorrhage or perforation (principal); K92.2 Gastrointestinal hemorrhage, unspecified
CPT/HCPCS: 36415; 85027

== ENCOUNTER → 2019-10-22 13:38 | Outpatient (CLI) | payer BC, SELFPAY ==
[2019-09-30 13:04] VITALS: BMI 32.5
[2019-10-22 14:32] LABS: Absolute Lymphocyte Count 3.51 X10^3/uL (0.83-4.51); Absolute Neutrophil Count 6.6 X10^3/uL (2.0-7.7); Basophil# 0.12 X10^3/uL; Eosinophil# 0.69 X10^3/uL; Eosinophils% 5.8 % (0-5); Hematocrit 29.9 % (37-47); Hemoglobin 8.8 g/dL (12.0-15.0); Lymphocyte # 3.51 X10^3/ul (4.0); Lymphocyte % 29.6 % (19-41); Mean Corp Hgb Conc 29.4 g/dL (32-36); Mean Corpuscular Hgb 24.6 pg (27.0-32.0); Mean Corpuscular Volume 83.5 fL (81-99); Mean Platelet Vol. 11.5 fl (6.2-12.0); Monocyte# 0.88 X10^3/uL; Monocyte% 7.4 % (0-10); NRBC Flagged by Analyzer 0 % (0-5); Neutrophil # 6.61 X10^3/uL (2.7-7.7); Neutrophil % 55.8 % (47-70); Platelet Count 339 K/mm3 (150-450); RBC Distribution Width CV 15.8 % (11.6-14.6); RBC Distribution Width SD 47.9 fl (35.1-43.9); Red Blood Count 3.58 M/mm3 (4.2-5.4); White Blood Count 11.9 K/mm3 (4.4-11.0)
== END ==
PROVIDERS: PCP Family Medicine; Referring Provider Surgery; Visit Provider Surgery
DX: D62 Acute posthemorrhagic anemia (principal)
CPT/HCPCS: 36415; 85025

== ENCOUNTER → 2021-02-14 | Outpatient (CLI) | payer BC, SELFPAY | END | disposition home or self-care (01) | LOC: LABSPEC 13:38 | PROVIDERS: PCP Family Medicine; Visit Provider Physician Assistant | DX: Z20.822 Contact with and (suspected) exposure to COVID-19 (principal) | CPT/HCPCS: 87635; U0005; U0003 ==

== ENCOUNTER → 2021-02-20 17:18 | Outpatient (CLI) | payer BC, SELFPAY ==
--- NOTE | 2021-02-20 17:21 | RAD_ITS ---
STUDY: X-RAY - RIGHT KNEE REASON FOR EXAM: Female, 50 years old. Knee pain. TECHNIQUE: 4 view(s) of the knee. COMPARISON: None. FINDINGS: Mild osteopenia. Normal visualized distal femur. Normal visualized proximal tibia and fibula. Normal proximal tibiofibular articulation. Mild medial compartmental arthrosis with small osteophytes. Moderate lateral compartmental arthrosis with osteophyte formation. Lateral subluxation of the patella with moderate to marked arthrosis of the patellofemoral compartment. The soft tissue structures are unremarkable. RAD/Knee 4 or More Views IMPRESSION: Osteopenia with tricompartmental arthrosis as described. No acute abnormality, erosive changes or periostitis. Electronically Signed: Jaylon Adams MD at 14:13 EDT , Service support ,
== END ==
LOC: MTRAD 17:18
PROVIDERS: PCP Family Medicine; Referring Provider Family Medicine; Visit Provider Family Medicine
DX: M17.11 Unilateral primary osteoarthritis, right knee (principal)
CPT/HCPCS: 73564

== ENCOUNTER → 2021-04-14 08:47 | Outpatient (CLI) | payer BC, SELFPAY ==
--- NOTE | 2021-04-14 08:58 | MRI_ITS ---
STUDY: MRI RIGHT KNEE REASON FOR EXAM: Female, 50 years old. 2 prev surgeries rt knee, unstable, patella off to side, pain entire knee TECHNIQUE: Standardized fat and water weighted pulse sequences were obtained in all 3 orthogonal planes. COMPARISON: Right knee x-ray dated February 20, 2021 FINDINGS: Normal medial meniscus. There is diffuse, less than 50% thickness articular cartilage loss of the medial femorotibial compartment. There is mild osteoarthritic spur formation of the medial knee compartment. Normal medial collateral ligamentous complex (MCL). Normal distal semimembranosus, gracilis and semitendinosus tendons. There is maceration and large complex tear is of the body and posterior horn of the lateral meniscus. The anterior horn is diffusely thinned but intact.. There is diffuse, greater than 50% thickness articular cartilage loss of the lateral femorotibial compartment. There is mild osteoarthritic spur formation of the lateral knee compartment. Normal proximal tibiofibular articulation. Normal lateral collateral (fibular) ligament. Normal popliteus tendon. Normal biceps femoris tendon. Normal anterior cruciate ligament (ACL). Normal posterior cruciate ligament (PCL). Normal congruent patellofemoral articulation. There is diffuse, full thickness articular cartilage loss of the patellofemoral compartment. Mild to moderate cortical osteophyte formation of the patella is also present. Normal medial and lateral patellar retinaculum. Normal quadriceps tendon. Normal patellar tendon. Normal Hoffa''s fat pad. A small joint effusion is present. The soft tissues are unremarkable. The otherwise visualized osseous structures are unremarkable. MRI/Lower Ext Joint Only (Routine) IMPRESSION: 1. Maceration and complex tearing of the body and posterior horn of lateral meniscus 2. Full-thickness loss of cartilage in patellofemoral compartment Electronically Signed: Khoa Zhang MD at 21:37 EDT , Service support ,
== END ==
PROVIDERS: PCP Family Medicine; Visit Provider Family Medicine
DX: S83.271A Complex tear of lateral meniscus, current injury, right knee, initial encounter (principal); X58.XXXA Exposure to other specified factors, initial encounter; M22.41 Chondromalacia patellae, right knee
CPT/HCPCS: 73721

== ENCOUNTER 2021-07-02 16:48 | Outpatient (CLI) | payer BC, SELFPAY ==
--- NOTE | 2021-07-02 17:10 | CT_ITS ---
STUDY: CT RIGHT LOWER EXTREMITY WITHOUT CONTRAST REASON FOR EXAM: Right knee pain, right knee osteoarthritis, surgical planning. TECHNIQUE: Transaxial CT imaging of the lower extremity was performed. Coronal and sagittal images were reformatted. Individualized dose optimization techniques were used for this CT. COMPARISON: Radiographs 02/20/2021. FINDINGS: Right knee: There are marginal osteophytes with preservation of joint space of the medial femorotibial compartment. There are marginal osteophytes with mild joint space narrowing of the lateral femorotibial compartment (coronal reconstruction 35). There are marginal osteophytes with severe joint space narrowing of the patellofemoral compartment (axial image 266) and lateral subluxation of the patella. There are small cysts in the proximal tibia at the insertion sites of the cruciate ligaments. There is a small right knee joint effusion. There is a small posterior intra-articular body (sagittal reconstructions 38, 39). Right hip: There is preservation of the right hip joint space. Right ankle: Normal tibiotalar, posterior subtalar and talonavicular articulations. CT/Extremity Lower without Contra IMPRESSION: Right knee osteoarthritis. Electronically Signed: Isiah Vann MD at 15:00 EST ,
== END 2021-07-02 23:59 | disposition short-term general hospital (02) ==
PROVIDERS: PCP Family Medicine; Visit Provider Specialist
DX: M21.061 Valgus deformity, not elsewhere classified, right knee (principal)
CPT/HCPCS: 73700

== ENCOUNTER 2021-07-05 14:25 | Outpatient (CLI) | payer BC, SELFPAY ==
--- NOTE | 2021-07-05 14:27 | EKG12_ITS ---
Test Reason : PREOP Blood Pressure : / mmHG Vent. Rate : 083 BPM Atrial Rate : 083 BPM P-R Int : 136 ms QRS Dur : 082 ms QT Int : 348 ms P-R-T Axes : 052 057 062 degrees QTc Int : 408 ms Normal sinus rhythm Normal ECG Confirmed by YOKO BHATT, CHASTITY ([id number]), movie editor KEM ISIDRO ([id number]) on 07/06/2021 1:13:26 PM Referred By: Partha Aranda Confirmed By:LEAH BABCOCK MD
[2021-07-05 15:04] LABS: Absolute Lymphocyte Count 5.11 X10^3/uL (0.83-4.51); Absolute Neutrophil Count 5.6 X10^3/uL (2.0-7.7); Basophil# 0.13 X10^3/uL; Eosinophil# 1.22 X10^3/uL; Eosinophils% 9.2 % (0-5); Hematocrit 43.8 % (37-47); Hemoglobin 14.7 g/dL (12.0-15.0); Lymphocyte # 5.11 X10^3/ul (0.83-4.51); Lymphocyte % 38.6 % (19-41); Mean Corp Hgb Conc 33.6 g/dL (32-36); Mean Corpuscular Hgb 30.1 pg (27.0-32.0); Mean Corpuscular Volume 89.6 fL (81-99); Mean Platelet Vol. 10.8 fl (6.2-12.0); Monocyte% 8.3 % (0-10); NRBC Flagged by Analyzer 0 % (0-5); Neutrophil # 5.63 X10^3/uL (2.7-7.7); Neutrophil % 42.5 % (47-70); POSITIVE DIFFERENTIAL YES; Platelet Count 255 K/mm3 (150-450); RBC Distribution Width CV 12.8 % (11.6-14.6); RBC Distribution Width SD 42.3 fl (35.1-43.9); Red Blood Count 4.89 M/mm3 (4.2-5.4); White Blood Count 13.2 K/mm3 (4.4-11.0)
[2021-07-05 15:07] LABS: Differential Indicated SCAN CRITERIA MET
[2021-07-05 15:39] LABS: Anion Gap 6 (5-15); BUN 19 mg/dL (7-18); BUN/Creat Ratio 21.2 RATIO (10-20); Calcium,Total 9.5 mg/dL (8.5-10.1); Chloride 106 mmol/L (98-107); EST Glomerular Filtration Rate 71 mL/min (>60); Est Glom Filt Rate - Afr Amer 86 mL/min (>60); Glucose 101 mg/dL (74-106); Sodium Level 140 mmol/L (136-145)
[2021-07-05 15:40] LABS: Platelet Estimate ADEQUATE (ADEQ); Red Cell Morphology N CHROM NORMAL (NORM C&C)
[2021-07-05 15:41] LABS: Anisocytosis RARE; Macrocytosis RARE
== END 2021-07-05 23:59 | disposition short-term general hospital (02) ==
PROVIDERS: PCP Family Medicine; Referring Provider Physician Assistant Surgical; Visit Provider Physician Assistant Surgical
DX: Z01.810 Encounter for preprocedural cardiovascular examination (principal); Z01.818 Encounter for other preprocedural examination
CPT/HCPCS: 36415; 80048; 85025; 93005

== ENCOUNTER 2021-07-17 16:20 | Outpatient (CLI) | payer BC, SELFPAY ==
[2021-07-17 17:40] LABS: Absolute Lymphocyte Count 4.16 X10^3/uL (0.83-4.51); Absolute Neutrophil Count 6.3 X10^3/uL (2.0-7.7); Basophil# 0.12 X10^3/uL; Eosinophil# 0.76 X10^3/uL; Eosinophils% 6.2 % (0-5); Hematocrit 44.1 % (37-47); Hemoglobin 15.2 g/dL (12.0-15.0); Lymphocyte # 4.16 X10^3/ul (0.83-4.51); Lymphocyte % 33.8 % (19-41); Mean Corp Hgb Conc 34.5 g/dL (32-36); Mean Platelet Vol. 10.9 fl (6.2-12.0); Monocyte% 7.3 % (0-10); NRBC Flagged by Analyzer 0 % (0-5); Neutrophil # 6.33 X10^3/uL (2.7-7.7); Neutrophil % 51.4 % (47-70); Platelet Count 312 K/mm3 (150-450); RBC Distribution Width CV 13.1 % (11.6-14.6); RBC Distribution Width SD 42.6 fl (35.1-43.9); White Blood Count 12.3 K/mm3 (4.4-11.0)
== END 2021-07-17 23:59 | disposition home or self-care (01) ==
LOC: MTLAB 16:22
PROVIDERS: PCP Family Medicine; Referring Provider Family Medicine; Visit Provider Family Medicine
DX: Z01.812 Encounter for preprocedural laboratory examination (principal)
CPT/HCPCS: 36415; 85025

== ENCOUNTER → 2022-05-28 | Outpatient (CLI) | payer BC, SELFPAY ==
[2022-06-12 19:24] LABS: HPV APTIMA, High Risk Negative (Negative)
[2022-06-12 19:32] LABS: HPV Reflexed? YES, CHARGE PATIENT
== END | disposition home or self-care (01) ==
LOC: LABSPEC 10:03
PROVIDERS: PCP Family Medicine; Referring Provider Nurse Practitioner Family; Visit Provider Nurse Practitioner Family
DX: Z12.4 Encounter for screening for malignant neoplasm of cervix (principal)
CPT/HCPCS: 87624; 88175; G0145

== ENCOUNTER → 2022-07-16 | Outpatient (CLI) | payer BC, SELFPAY ==
[2022-07-16 18:34] LABS: Free T3 2.3 pg/mL (2.18-3.98); T4 Total, Thyroxin 8.2 ug/dL (4.8-13.9); Thyroid Stim Hormone (TSH) 2.43 uIU/mL (0.358-3.74)
== END | disposition home or self-care (01) ==
LOC: MTLAB 16:53
PROVIDERS: PCP Family Medicine; Referring Provider Nurse Practitioner Family; Visit Provider Nurse Practitioner Family
DX: R53.83 Other fatigue (principal)
CPT/HCPCS: 36415; 84436; 84443; 84481

== ENCOUNTER → 2023-03-25 | Outpatient (CLI) | payer BC, SELFPAY ==
--- NOTE | 2023-03-25 16:32 | BI_ITS ---
MAMMOGRAPHY - BILATERAL SCREENING 3-D TOMOSYNTHESIS REASON FOR EXAM: Female, 52 years old. SCREENING PERTINENT HISTORY: No significant family history. TECHNIQUE: 2-D mammograms and 3-D Tomosynthesis of the breast (s) were performed. CAD was performed. COMPARISON: 02/13/2021 FINDINGS: The breast composition is composed of scattered fibroglandular density. Scattered benign calcifications are seen. No dense spiculated masses or suspicious microcalcifications are identified. No architectural distortion is identified. There is no skin thickening or retraction. There has been no significant change since the prior study. BI/SCRN MAMM (CAD)W/ZEHRA BILAT IMPRESSION: No mammographic signs of malignancy. Routine yearly mammograms recommended. ASSESSMENT CATEGORY: BIRADS Category 1: Negative. A letter regarding these results will be sent to the patient by the facility within 30 days. FOLLOW UP RECOMMENDATION: Yearly follow up mammogram recommended. (A) Approximately 10% of breast cancers are not detected by mammography. A normal mammogram should not delay biopsy of a clinically suspicious abnormality. Electronically Signed: Juan Schofield MD at 12:59 EDT ,
== END | disposition home or self-care (01) ==
LOC: OPBI 16:31
PROVIDERS: PCP Family Medicine; Referring Provider Family Medicine; Visit Provider Family Medicine
DX: Z12.31 Encounter for screening mammogram for malignant neoplasm of breast (principal)
CPT/HCPCS: 77063; 77067

== ENCOUNTER → 2024-06-22 | Outpatient (CLI) | payer BC, SELFPAY | END | disposition home or self-care (01) | PROVIDERS: PCP Family Medicine; Referring Provider Physician Assistant; Visit Provider Physician Assistant | DX: R30.0 Dysuria (principal) | CPT/HCPCS: 87086; 87088; 87186 ==

== ENCOUNTER → 2024-06-23 | Outpatient (CLI) | payer BC, SELFPAY ==
[2024-06-23 15:15] LABS: Absolute Lymphocyte Count 4.07 X10^3/uL (0.83-4.51); Basophil% 1.3 % (0-1); Eosinophil# 0.79 X10^3/uL; Eosinophils% 5.2 % (0-5); Hematocrit 38.7 % (37-47); Hemoglobin 12.5 g/dL (12.0-15.0); Lymphocyte # 4.07 X10^3/ul (0.83-4.51); Mean Corp Hgb Conc 32.3 g/dL (32-36); Mean Platelet Vol. 10.5 fl (6.2-12.0); Monocyte# 0.93 X10^3/uL; Monocyte% 6.2 % (0-10); NRBC Flagged by Analyzer 0 % (0-5); Neutrophil # 9.04 X10^3/uL (2.7-7.7); Neutrophil % 59.8 % (47-70); Platelet Count 366 K/mm3 (150-450); RBC Distribution Width CV 12.5 % (11.6-14.6); RBC Distribution Width SD 42.6 fl (35.1-43.9); Red Blood Count 4.16 M/mm3 (4.2-5.4); White Blood Count 15.1 K/mm3 (4.4-11.0)
[2024-06-23 15:30] LABS: Erythrocyte Sedimentation Rate 11 mm/hr (0-30)
[2024-06-23 15:55] LABS: Anion Gap 4 (5-15); BUN 10 mg/dL (7-18); BUN/Creat Ratio 13.2 RATIO (10-20); Calcium,Total 9.8 mg/dL (8.5-10.1); Chloride 108 mmol/L (98-107); Creatinine, Serum 0.76 mg/dL (0.55-1.02); EST Glomerular Filtration Rate 85 mL/min (>60); Est Glom Filt Rate - Afr Amer 103 mL/min (>60); Glucose 97 mg/dL (74-106); Potassium 3.8 mmol/L (3.5-5.1); Sodium Level 140 mmol/L (136-145)
== END | disposition home or self-care (01) ==
LOC: MTLAB 12:36
PROVIDERS: PCP Family Medicine; Referring Provider Family Medicine; Visit Provider Family Medicine
DX: N39.0 Urinary tract infection, site not specified (principal); M54.9 Dorsalgia, unspecified
CPT/HCPCS: 36415; 80048; 85025; 85652; 86140

== ENCOUNTER → 2024-06-25 | Outpatient (CLI) | payer BC, SELFPAY ==
--- NOTE | 2024-06-25 08:18 | CT_ITS ---
STUDY: CT ABDOMEN AND PELVIS WITH CONTRAST REASON FOR EXAM: Female, 53 years old. UTI--IV CONTRAST ONLY RADIATION DOSAGE (If Supplied By Facility): CTDIvol = ( 11.91 ) mGy, DLP = ( 933.60 ) mGycm TECHNIQUE: Transaxial images were obtained from the dome of the diaphragm to the symphysis pubis without oral contrast. IV 100mL Isovue-300 was administered. Sagittal and coronal images were reconstructed. Individualized dose optimization techniques were used for this CT. COMPARISON: None. FINDINGS: Minimal degree of increased linear markings at the right lung base suggest some mild linear atelectasis. The visualized portions of the heart are within normal limits. Minimal central intrahepatic biliary ductal dilatation. The patient is status post cholecystectomy. Normal spleen. Normal pancreas. Normal bilateral adrenal glands. Normal right kidney. Normal left kidney. Normal visualized stomach. Normal small intestine. Normal colon. The appendix is visualized and appears normal. Normal abdominal aorta. Normal inferior vena cava. Normal retroperitoneum. Normal urinary bladder. Bilateral tubal ligation clips are seen in the pelvis. Normal abdominal wall. Normal osseous structures. CT/Abdomen/Pelvis W IV Cont ONLY IMPRESSION: Status post cholecystectomy. Mild degree of intrahepatic biliary ductal dilatation. Electronically Signed: Reagan Madrid MD at 14:57 EST ,
== END | disposition home or self-care (01) ==
LOC: CT 08:18
PROVIDERS: PCP Family Medicine; Referring Provider Family Medicine; Visit Provider Family Medicine
DX: N39.0 Urinary tract infection, site not specified (principal)